=== PATIENT | male | born 1975 | race Caucasian/White ===

== ENCOUNTER 2018-07-28 17:05 | Emergency (ER) | payer OTHER ==
[~2018-07-28] VITALS: Ht 182.9 cm; Wt 102.1 kg
--- NOTE | 2018-07-28 18:10 | NUR ---
CALL TO [facility] [phone], REQUEST PT SCREENING PER DR AVILA. DR AVILA SAW AND EXAMINED PT STATING MEDICAL CLEARANCE PT IS NOT A THREAT TO SELF OR OTHERS. [facility] REPORTS NO JAVASCRIPT APPLICATION DEVELOPER INVOLVEMENT UNLESS ED PHYSICIAN PERFORMS MEDICAL SCREENING LABS. MAY CALL BACK WHEN PERFORMED.
--- NOTE | 2018-07-28 18:22 | ED General ---
General Chief Complaint: Psych/Social Disorder Stated Complaint: MEDICAL CLEARANCE Nursing Triage Note: BROUGHT TO ED VIA [facility] FOR MEDICAL CLEARANCE FOR MENTAL HEALTH EVALUATION THEY REQUESTED. 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 PT PRESENTS RAMBLING CONVERSATION. PT STATES STOPPED ABILIFY A DAY AGO. Nursing Sepsis Screen: No Definite Risk History of Present Illness Date Seen by Provider: Jul 28, 2018 Time Seen by Provider: 18:21 Initial Comments Patient has a 42-year-old male with a history of psychotic symptoms who is brought to the emergency department today after he was found driving 60 miles an hour and running. Signs through the downtown area of force. After it stopped , the police state that the patient made some irrational and abnormal comments about his body so he is brought to the emergency department for evaluation. The patient states he does have a history of some psychotic symptoms and racing thoughts after having a head injury several years earlier. He was previously taking Abilify but stopped taking this medicine yesterday when he ran out. Additionally, he states the medication was not helping his symptoms. He is traveling from [place] and on his way home to [place] but came to first got to say any hotel overnight. During the interview, the patient is not suicidal or homicidal. He complains only of racing thoughts. He does hear voices in his head but they're not giving him specific instructions. Denies illicit drug use or alcohol use today. Allergies and Home Medications Allergies Coded Allergies: No Known Drug Allergies (Unverified , 07/28/18) Home Medications Unable to Obtain Active Prescriptions or Reported Meds Patient Home Medication List Home Medication List Reviewed: Yes Review of Systems Review of Systems Constitutional: no symptoms reported Respiratory: no symptoms reported; No short of breath, No stridor Cardiovascular: No edema, No palpitations, No syncope Gastrointestinal: No diarrhea, No nausea Genitourinary: No hematuria, No pain Psychiatric/Neurological: See HPI; Denies Paresthesia, Denies Seizure, Denies Tingling Hematologic/Lymphatic: See HPI; Denies Anemia, Denies Blood Clots, Denies Other Immunological/Allergic: denies see HPI, denies transplant All Other Systems Reviewed Negative Unless Noted: Yes Past Gxtwddu-Zlkopr-Sygijl Hx Patient Social History Alcohol Use: Occasionally Uses Recreational Drug Use: No (REPORTS HAVING BEEN GIVEN "CRACK" ONE TIME ALONG TIME AGO) Smoking Status: Former Smoker Recent Foreign Travel: No (N) Contact w/Someone Who Travel: No (N) Recent Infectious Disease Expo: No Recent Hopitalizations: No (DENIES, POOR HISTORIAN) Physical Abuse: No Sexual Abuse: No Mistreated: No Fear: No Past Medical History Surgeries: Yes (FX L ARM) Orthopedic, Tonsillectomy Physical Exam Vital Signs Vital Signs - First Documented 07/28/18 17:11 Temp 98.0 Pulse 95 Resp 20 B/P (MAP) 162/122 (135) Pulse Ox 98 O2 Delivery Room Air Capillary Refill : Less Than 3 Seconds Height, Weight, BMI Height: 6'0" Weight: 225lbs. oz. 102.316605vq; BMI Method:Stated General Appearance: No Apparent Distress (NAD) Eyes: Bilateral Eye Normal Inspection, Bilateral Eye PERRL, Bilateral Eye EOMI HEENT: Normal ENT Inspection Neck: Full Range of Motion Respiratory: No Accessory Muscle Use, No Respiratory Distress Cardiovascular: No Edema, Normal Peripheral Pulses Back: Other (normal range of motion) Extremity: Normal Inspection Neurologic/Psychiatric: Alert, Oriented x3, No Motor/Sensory Deficits, Other Skin: Normal Color Progress/Results/Core Measures Suspected Sepsis Recent Fever Within 48 Hours: No Infection Criteria Present: None New/Unexplained Altered Menta: Yes Sepsis Screen: No Definite Risk SIRS Temperature:98.0 Pulse: 95 Respiratory Rate: 20 Laboratory Tests 07/28/18 18:33: White Blood Count 12.1H Blood Pressure 162 /122 Mean: 135 Laboratory Tests 07/28/18 18:33: Creatinine 1.01, INR Comment 1.0, Platelet Count 391 Results/Orders Lab Results Laboratory Tests Test 07/28/18 18:33 07/28/18 19:00 Range/Units White Blood Count 12.1 H 4.3-11.0 10^3/uL Red Blood Count 5.64 4.35-5.85 10^6/uL Hemoglobin 17.2 13.3-17.7 G/DL Hematocrit 50 40-54 % Mean Corpuscular Volume 89 80-99 FL Mean Corpuscular Hemoglobin 30 25-34 PG Mean Corpuscular Hemoglobin Concent 34 32-36 G/DL Red Cell Distribution Width 12.8 10.0-14.5 % Platelet Count 391 130-400 10^3/uL Mean Platelet Volume 8.9 7.4-10.4 FL Neutrophils (%) (Auto) 64 42-75 % Lymphocytes (%) (Auto) 29 12-44 % Monocytes (%) (Auto) 7 0-12 % Eosinophils (%) (Auto) 0 0-10 % Basophils (%) (Auto) 1 0-10 % Neutrophils # (Auto) 7.7 1.8-7.8 X 10^3 Lymphocytes # (Auto) 3.4 1.0-4.0 X 10^3 Monocytes # (Auto) 0.8 0.0-1.0 X 10^3 Eosinophils # (Auto) 0.0 0.0-0.3 10^3/uL Basophils # (Auto) 0.1 0.0-0.1 10^3/uL Prothrombin Time 13.5 12.2-14.7 SEC INR Comment 1.0 0.8-1.4 Activated Partial Thromboplast Time 28 24-35 SEC Sodium Level 141 135-145 MMOL/L Potassium Level 3.6 3.6-5.0 MMOL/L Chloride Level 101 98-107 MMOL/L Carbon Dioxide Level 17 L 21-32 MMOL/L Anion Gap 23 H 5-14 MMOL/L Blood Urea Nitrogen 14 7-18 MG/DL Creatinine 1.01 0.60-1.30 MG/DL Estimat Glomerular Filtration Rate > 60 BUN/Creatinine Ratio 14 Glucose Level 115 H 70-105 MG/DL Calcium Level 9.8 8.5-10.1 MG/DL Salicylates Level < 0.3 L 5.0-20.0 MG/DL Acetaminophen Level < 10 L 10-30 UG/ML Serum Alcohol < 10 <10 MG/DL Urine Color YELLOW Urine Clarity CLEAR Urine pH 6.2 5-9 Urine Specific [place] 1.020 1.016-1.022 Urine Protein NEGATIVE NEGATIVE Urine Glucose (UA) NEGATIVE NEGATIVE Urine Ketones TRACE H NEGATIVE Urine Nitrite NEGATIVE NEGATIVE Urine Bilirubin NEGATIVE NEGATIVE Urine Urobilinogen 0.2 NORMAL MG/DL Urine Leukocyte Esterase NEGATIVE NEGATIVE Urine RBC (Auto) NEGATIVE NEGATIVE Urine RBC NONE /HPF Urine WBC 0-2 /HPF Urine Squamous Epithelial Cells 0-2 /HPF Urine Crystals NONE /LPF Urine Bacteria NEGATIVE /HPF Urine Casts NONE /LPF Urine Mucus SMALL H /LPF Urine Culture Indicated NO Urine Opiates Screen NEGATIVE NEGATIVE Urine Oxycodone Screen NEGATIVE NEGATIVE Urine Methadone Screen NEGATIVE NEGATIVE Urine Propoxyphene Screen NEGATIVE NEGATIVE Urine Barbiturates Screen NEGATIVE NEGATIVE Ur Tricyclic Antidepressants Screen NEGATIVE NEGATIVE Urine Phencyclidine Screen NEGATIVE NEGATIVE Urine Amphetamines Screen NEGATIVE NEGATIVE Urine Methamphetamines Screen NEGATIVE NEGATIVE Urine Benzodiazepines Screen NEGATIVE NEGATIVE Urine Cocaine Screen NEGATIVE NEGATIVE Urine Cannabinoids Screen NEGATIVE NEGATIVE My Orders Orders - ROBERTO CARLOS AVILA DO Cbc With Automated Diff (07/28/18 18:12) Basic Metabolic Panel (07/28/18 18:12) Drug Screen Stat (Urine) (07/28/18 18:12) Urinalysis (07/28/18 18:22) Protime With Inr (07/28/18 18:22) Partial Thromboplastin Time (07/28/18 18:22) Ekg Tracing (07/28/18 18:22) Salicylate (07/28/18 18:22) Acetaminophen (07/28/18 18:22) Alcohol (07/28/18 18:22) Vital Signs/I&O 07/28/18 17:11 Temp 98.0 Pulse 95 Resp 20 B/P (MAP) 162/122 (135) Pulse Ox 98 O2 Delivery Room Air Capillary Refill : Less Than 3 Seconds Blood Pressure Mean: 135 Progress Note : Time: 18:32 Progress Note :Patient is seen and examined. He is calm and cooperative. He is alert and oriented. Not acutely suicidal or homicidal. [facility] senior information security consultant are present. The patient is in police protective custody but is not under arrest. 19:30: All labs are returned and reviewed. There are no acute findings on the patient's lab panel. Paperwork is faxed to the mental health screener. Currently awaiting screening for this patient. The patient continues to be calm and cooperative. Police are still with the patient. He has no acute psychiatric complaints today. 20:10: I did speak with the mental health screener who evaluated the patient's case and his concerns. I advised her that the patient was requesting to be evaluated by a psychiatrist for mental health professional. The patient has not made any emergent statements or complaints that would qualify him for inpatient. Because of this, the screener did not feel that the patient met criteria for acute screening. She recommended a simple safety plan and discharge from the emergency department. I spoke to the health officer with the patient as well as the patient about this plan of care. All parties were agreeable to this plan. Patient is discharged home. He is advised follow-up with his primary psychiatrist when he gets back home to [place]. Return to this ER or go to the nearest emergency department for any new or worsening symptoms. ECG Initial ECG Impression Date: Jul 28, 2018 Initial ECG Impression Time: 18:46 Initial ECG Rate: 66 Initial ECG Intervals: Normal Initial ECG Impression: Normal Departure Impression Primary Impression: Disorganized thought process Disposition: 01 HOME, SELF-CARE Condition: Stable Departure-Patient Inst. Referrals: NO,LOCAL PHYSICIAN (PCP/Family) Primary Care Physician Scripts Unable to Obtain Active Prescriptions or Reported Meds ROBERTO CARLOS AVLIA DO Jul 28, 2018 18:22
--- NOTE | 2018-07-28 18:30 | NUR ---
LAB PRESENT DRAWING PT'S MEDICAL SCREEENING LABS.
[2018-07-28 18:44] LABS: WHITE BLOOD COUNT 12.1 10^3/uL (4.3-11.0)
[2018-07-28 18:45] LABS: EOSINOPHILS % (AUTO) 0 % (0-10); HEMATOCRIT 50 % (40-54); HEMOGLOBIN 17.2 G/DL (13.3-17.7); LYMPHOCYTES % (AUTO) 29 % (12-44); MEAN CORPUSCULAR HEMOGLOBIN 30 PG (25-34); MEAN CORPUSCULAR HGB CONC 34 G/DL (32-36); MEAN CORPUSCULAR VOLUME 89 FL (80-99); MEAN PLATELET VOLUME 8.9 FL (7.4-10.4); MONOCYTES % (AUTO) 7 % (0-12); NEUTROPHILS % (AUTO) 64 % (42-75); PLATELET COUNT 391 10^3/uL (130-400); RED CELL DISTRIBUTION WIDTH 12.8 % (10.0-14.5)
[2018-07-28 18:46] LABS: BASOPHILS # (AUTO) 0.1 10^3/uL (0.0-0.1); BASOPHILS % (AUTO) 1 % (0-10); LYMPHOCYTES # (AUTO) 3.4 X 10^3 (1.0-4.0); MONOCYTES # (AUTO) 0.8 X 10^3 (0.0-1.0); NEUTROPHILS # (AUTO) 7.7 X 10^3 (1.8-7.8)
[2018-07-28 19:06] LABS: PROTHROMBIN TIME PATIENT 13.5 SEC (12.2-14.7)
[2018-07-28 19:11] LABS: BILIRUBIN,URINE NEGATIVE (NEGATIVE); CLARITY,URINE CLEAR; COLOR,URINE YELLOW; GLUCOSE, URINE (UA) NEGATIVE (NEGATIVE); KETONES,URINE TRACE (NEGATIVE); NITRITE,URINE NEGATIVE (NEGATIVE); PH,URINE 6.2 (5-9); PROTEIN,URINE NEGATIVE (NEGATIVE); UROBILINOGEN,URINE 0.2 MG/DL (NORMAL)
[2018-07-28 19:12] LABS: BACTERIA,URINE NEGATIVE /HPF; LEUKOCYTE ESTERASE ,URINE NEGATIVE (NEGATIVE); SQUAMOUS EPITHELIAL CELL,UR 0-2 /HPF; WBC,URINE 0-2 /HPF
[2018-07-28 19:14] LABS: BUN/CREATININE RATIO 14; CALCIUM 9.8 MG/DL (8.5-10.1); CARBON DIOXIDE 17 MMOL/L (21-32); CHLORIDE 101 MMOL/L (98-107); CREATININE SERUM 1.01 MG/DL (0.60-1.30); GFR ESTIMATED > 60; GLUCOSE 115 MG/DL (70-105); POTASSIUM 3.6 MMOL/L (3.6-5.0); SODIUM 141 MMOL/L (135-145)
[2018-07-28 19:15] LABS: ACETAMINOPHEN < 10 UG/ML (10-30); SALICYLATE < 0.3 MG/DL (5.0-20.0)
[2018-07-28 19:19] LABS: AMPHETAMINE SCREEN, URINE NEGATIVE (NEGATIVE); BARBITURATE SCREEN URINE NEGATIVE (NEGATIVE); BENZODIAZEPINES SCREEN URINE NEGATIVE (NEGATIVE); CANNABINOID SCREEN, URINE NEGATIVE (NEGATIVE); COCAINE SCREEN URINE NEGATIVE (NEGATIVE); METHADONE STAT NEGATIVE (NEGATIVE); METHAMPHETAMINE SCREEN URINE S NEGATIVE (NEGATIVE); OPIATE SCREEN URINE NEGATIVE (NEGATIVE); OXYCODONE STAT NEGATIVE (NEGATIVE); PROPOXYPHENE STAT NEGATIVE (NEGATIVE); TRICYCLIC ANTIDEPRESSANTS SCRE NEGATIVE (NEGATIVE)
--- NOTE | 2018-07-28 19:22 | NUR ---
1921- Contacted [facility] to initiate screeing process 1940 - Theresa at [facility] called for more information. Theresa stated that she didn't think that a screeing was indicated at this time. She would call back in 10-15 minutes. 1956 - Theresa called and spoke to Dr. Cortez at this time. She stated that a screening was not indicated at this time. Patient has been medically cleared and screening was determined to not be indicated by [facility].
[2018-07-28 20:15] VITALS: BP 175/85
== END 2018-07-28 20:15 | disposition home or self-care (01) ==
LOC: ER FS 17:07 → EDBD 17:07 → ER FS 20:15
DX: F99 Mental disorder, not otherwise specified (principal); Z87.891 Personal history of nicotine dependence; Z90.89 Acquired absence of other organs; Z98.890 Other specified postprocedural states
CPT/HCPCS: 36415; 80048; 80306; 80320; 80329; 81000; 85025; 85610; 85730

== ENCOUNTER 2018-07-30 10:15 | Emergency (ER) | payer SELFPAY ==
[~2018-07-30] VITALS: Ht 182.9 cm; Wt 102.1 kg
--- NOTE | 2018-07-30 10:33 | ED Psychosocial ---
General Stated Complaint: PSYCH EVAL Source: patient, police, RN/MD (Bedside nurse), RN notes reviewed Exam Limitations: no limitations History of Present Illness Date Seen by Provider: Jul 30, 2018 Time Seen by Provider: 10:18 Timing/Duration: constant (For the past several days), getting worse Severity: moderate Associated Symptoms: anxiety, impaired concentration, insomnia, other ( homicidal ideation) 42-year-old man who was seen on July 28 for medical clearance after disobeying traffic laws. He was not suicidal or homicidal at that time, heard voices but they were random and not giving any sort of specific instructions. He had a normal medical evaluation and was discharged. Today he called 911 to be brought in for mental health evaluation, because "my mind did not feel right". Told PD that he was having hallucinations, hearing voices that told him to kill his mother with a flitch hanger and himself. He reports that he takes Abilify and last took that July 26 or July 27. He' s been traveling from [facility] back to his home in [place]. For the past 2 days he has been in a local hotel he has had intensifying auditory hallucinations, voices telling him to kill people especially his mother with a flitch hanger he is afraid that if he were to harm someone he may also harm himself. He reports he has had prior homicidal ideation when he was a child and in his teens. He denies smoking, illicit drug use or alcohol intake. Reports he's had difficulty sleeping for about 7 days with thoughts racing around in his head and "the part of the brain that tells you right from wrong is suppressed from the forefront of his mind", and that "it sometimes comes to the front of my mind making me concerned about the thoughts and voices that I am having". He feels like he is having shortness of breath that comes from his epigastric region and is causing these thoughts for the past 2-3 days constantly. He feels his body is "undergoing a transformation into the resurrection". Allergies and Home Medications Allergies Coded Allergies: No Known Drug Allergies (Unverified , 07/28/18) Home Medications Unable to Obtain Active Prescriptions or Reported Meds Patient Home Medication List Home Medication List Reviewed: Yes Review of Systems Constitutional: see HPI EENTM: No blurred vision, No double vision Respiratory: No cough, No dyspnea on exertion, No hemoptysis, No orthopnea; short of breath; No wheezing Cardiovascular: No chest pain, No palpitations Gastrointestinal: No abdominal pain, No diarrhea, No nausea, No vomiting Genitourinary: No discharge, No dysuria Musculoskeletal: No back pain, No joint swelling Skin: No dryness, No rash Psychiatric/Neurological: See HPI Past Ctipgxo-Dsfmbn-Yvmxps Hx Past Med/Social Hx: Reviewed Nursing Past Med/Soc Hx Patient Social History Recent Foreign Travel: No Contact w/Someone Who Travel: No Recent Hopitalizations: No (DENIES, POOR HISTORIAN) Past Medical History Surgeries: Yes (FX L ARM) Orthopedic, Tonsillectomy Physical Exam Vital Signs - First Documented 07/30/18 10:18 Temp 97.8 Pulse 83 Resp 20 B/P (MAP) 154/99 (117) Pulse Ox 100 O2 Delivery Room Air Capillary Refill : Height, Weight, BMI Height: 6'0" Weight: 225lbs. oz. 102.014489ym; BMI Method:Stated General Appearance: WD/WN, no apparent distress, other (Sweaty, anxious) HEENT: PERRL/EOMI, normal ENT inspection, pharynx normal Neck: full range of motion, supple Respiratory: chest non-tender, lungs clear, normal breath sounds, no respiratory distress, no accessory muscle use Cardiovascular: regular rate, rhythm, no edema, no gallop, no JVD, no murmur Gastrointestinal: normal bowel sounds, non tender, soft, no organomegaly, no pulsatile mass Extremities: normal range of motion, normal inspection Neurologic/Psychiatric: quality assurance supervisor II-XII nml as tested, no motor/sensory deficits, alert, other (pressured speech, flight of ideas, homicidal, auditory hallucinations) Thoughts/Hallucinations: auditory hallucinations, delusions, flight of ideas, grandiose, obsessive, paranoid, phobic (Afraid of persecution or imprisonment), denominational Progress/Results/Core Measures Results/Orders Lab Results Laboratory Tests Test 07/30/18 11:03 07/30/18 11:25 Range/Units White Blood Count 9.7 4.3-11.0 10^3/uL Red Blood Count 5.20 4.35-5.85 10^6/uL Hemoglobin 15.8 13.3-17.7 G/DL Hematocrit 47 40-54 % Mean Corpuscular Volume 90 80-99 FL Mean Corpuscular Hemoglobin 30 25-34 PG Mean Corpuscular Hemoglobin Concent 34 32-36 G/DL Red Cell Distribution Width 12.8 10.0-14.5 % Platelet Count 340 130-400 10^3/uL Mean Platelet Volume 8.9 7.4-10.4 FL Neutrophils (%) (Auto) 65 42-75 % Lymphocytes (%) (Auto) 28 12-44 % Monocytes (%) (Auto) 6 0-12 % Eosinophils (%) (Auto) 1 0-10 % Basophils (%) (Auto) 1 0-10 % Neutrophils # (Auto) 6.3 1.8-7.8 X 10^3 Lymphocytes # (Auto) 2.7 1.0-4.0 X 10^3 Monocytes # (Auto) 0.6 0.0-1.0 X 10^3 Eosinophils # (Auto) 0.1 0.0-0.3 10^3/uL Basophils # (Auto) 0.1 0.0-0.1 10^3/uL Sodium Level 141 135-145 MMOL/L Potassium Level 3.9 3.6-5.0 MMOL/L Chloride Level 104 98-107 MMOL/L Carbon Dioxide Level 16 L 21-32 MMOL/L Anion Gap 21 H 5-14 MMOL/L Blood Urea Nitrogen 13 7-18 MG/DL Creatinine 1.02 0.60-1.30 MG/DL Estimat Glomerular Filtration Rate > 60 BUN/Creatinine Ratio 13 Glucose Level 113 H 70-105 MG/DL Calcium Level 9.8 8.5-10.1 MG/DL Corrected Calcium 8.5-10.1 MG/DL Total Bilirubin 0.4 0.1-1.0 MG/DL Aspartate Amino Transf (AST/SGOT) 19 5-34 U/L Alanine Aminotransferase (ALT/SGPT) 39 0-55 U/L Alkaline Phosphatase 80 40-136 U/L Total Protein 7.9 6.4-8.2 GM/DL Albumin 4.8 H 3.2-4.5 GM/DL Salicylates Level < 3.0 L 5.0-20.0 MG/DL Acetaminophen Level < 10 L 10-30 UG/ML Serum Alcohol < 10 <10 MG/DL Urine Color YELLOW Urine Clarity CLEAR Urine pH 6.0 5-9 Urine Specific [place] 1.025 H 1.016-1.022 Urine Protein NEGATIVE NEGATIVE Urine Glucose (UA) NEGATIVE NEGATIVE Urine Ketones NEGATIVE NEGATIVE Urine Nitrite NEGATIVE NEGATIVE Urine Bilirubin NEGATIVE NEGATIVE Urine Urobilinogen 0.2 NORMAL MG/DL Urine Leukocyte Esterase NEGATIVE NEGATIVE Urine RBC (Auto) NEGATIVE NEGATIVE Urine RBC RARE /HPF Urine WBC 0-2 /HPF Urine Squamous Epithelial Cells 2-5 /HPF Urine Crystals NONE /LPF Urine Bacteria NONE /HPF Urine Casts NONE /LPF Urine Mucus NEGATIVE /LPF Urine Culture Indicated NO Urine Opiates Screen NEGATIVE NEGATIVE Urine Oxycodone Screen NEGATIVE NEGATIVE Urine Methadone Screen NEGATIVE NEGATIVE Urine Propoxyphene Screen NEGATIVE NEGATIVE Urine Barbiturates Screen NEGATIVE NEGATIVE Ur Tricyclic Antidepressants Screen NEGATIVE NEGATIVE Urine Phencyclidine Screen NEGATIVE NEGATIVE Urine Amphetamines Screen NEGATIVE NEGATIVE Urine Methamphetamines Screen NEGATIVE NEGATIVE Urine Benzodiazepines Screen NEGATIVE NEGATIVE Urine Cocaine Screen NEGATIVE NEGATIVE Urine Cannabinoids Screen NEGATIVE NEGATIVE My Orders Orders - GONZALO ASH MD Ua Culture If Indicated (07/30/18 10:52) Cbc With Automated Diff (07/30/18 10:52) Comprehensive Metabolic Panel (07/30/18 10:52) Alcohol (07/30/18 10:52) Drug Screen Stat (Urine) (07/30/18 10:52) Acetaminophen (07/30/18 10:52) Salicylate (07/30/18 10:52) Ekg Tracing (07/30/18 10:52) Saline Lock/Iv-Start (07/30/18 10:52) Monitor-Rhythm Ecg Trace Only (07/30/18 10:52) Bh Status Checks/Observation Q15M (07/30/18 10:52) Chest 1 View Ap/Pa Only (07/30/18 10:52) Vital Signs/I&O 07/30/18 07/30/18 10:18 15:35 Temp 97.8 97.8 Pulse 83 80 Resp 20 20 B/P (MAP) 154/99 (117) 148/92 (110) Pulse Ox 100 100 O2 Delivery Room Air Progress Progress Note : Time: 12:10 Progress Note RN discussed case with MANDA screener who will evaluate in the ED. Initial ECG Impression Date: Jul 30, 2018 Initial ECG Impression Time: 11:00 Initial ECG Rate: 65 Initial ECG Rhythm: Normal Sinus Initial ECG Intervals Normal CT, QRS, QTC intervals, normal axis, no hypertrophy, no STEMI Initial ECG Impression: Normal Diagnostic Imaging Diagonstic Imaging: Xray Plain Films/CT/US/NM/MRI: chest Comments No acute process Reviewed: Reviewed by Me Consults : Consults Notes screener: 1500: patient does not need inpatient services. Will arrange outpatient follow up tomorrow. Departure Impression Primary Impression: Disorganized thought process Disposition: HOME, SELF-CARE Condition: Stable Departure-Patient Inst. Decision time for Depature: 15:12 Referrals: NO,LOCAL PHYSICIAN (PCP/Family) Primary Care Physician Add. Discharge Instructions: Follow up with [facility] as scheduled tomorrow. Scripts Unable to Obtain Active Prescriptions or Reported Meds GONZALO ASH MD Jul 30, 2018 10:33
[2018-07-30 11:15] LABS: BASOPHILS % (AUTO) 1 % (0-10); EOSINOPHILS % (AUTO) 1 % (0-10); HEMATOCRIT 47 % (40-54); HEMOGLOBIN 15.8 G/DL (13.3-17.7); LYMPHOCYTES % (AUTO) 28 % (12-44); MEAN CORPUSCULAR HEMOGLOBIN 30 PG (25-34); MEAN CORPUSCULAR HGB CONC 34 G/DL (32-36); MEAN CORPUSCULAR VOLUME 90 FL (80-99); MEAN PLATELET VOLUME 8.9 FL (7.4-10.4); MONOCYTES % (AUTO) 6 % (0-12); NEUTROPHILS % (AUTO) 65 % (42-75); PLATELET COUNT 340 10^3/uL (130-400); RED CELL DISTRIBUTION WIDTH 12.8 % (10.0-14.5); WHITE BLOOD COUNT 9.7 10^3/uL (4.3-11.0)
[2018-07-30 11:16] LABS: BASOPHILS # (AUTO) 0.1 10^3/uL (0.0-0.1); EOSINOPHILS # (AUTO) 0.1 10^3/uL (0.0-0.3); LYMPHOCYTES # (AUTO) 2.7 X 10^3 (1.0-4.0); MONOCYTES # (AUTO) 0.6 X 10^3 (0.0-1.0); NEUTROPHILS # (AUTO) 6.3 X 10^3 (1.8-7.8)
[2018-07-30 11:37] LABS: ALANINE AMINOTRANSFERASE 39 U/L (0-55); ALKALINE PHOSPHATASE 80 U/L (40-136); BILIRUBIN,TOTAL 0.4 MG/DL (0.1-1.0); BUN/CREATININE RATIO 13; CALCIUM 9.8 MG/DL (8.5-10.1); CARBON DIOXIDE 16 MMOL/L (21-32); CHLORIDE 104 MMOL/L (98-107); CREATININE SERUM 1.02 MG/DL (0.60-1.30); GFR ESTIMATED > 60; GLUCOSE 113 MG/DL (70-105); POTASSIUM 3.9 MMOL/L (3.6-5.0); SODIUM 141 MMOL/L (135-145)
[2018-07-30 11:38] LABS: CLARITY,URINE CLEAR; COLOR,URINE YELLOW
[2018-07-30 11:38] LABS: ACETAMINOPHEN < 10 UG/ML (10-30); ALBUMIN 4.8 GM/DL (3.2-4.5); SALICYLATE < 3.0 MG/DL (5.0-20.0); TOTAL PROTEIN 7.9 GM/DL (6.4-8.2)
[2018-07-30 11:39] LABS: BILIRUBIN,URINE NEGATIVE (NEGATIVE); GLUCOSE, URINE (UA) NEGATIVE (NEGATIVE); KETONES,URINE NEGATIVE (NEGATIVE); LEUKOCYTE ESTERASE ,URINE NEGATIVE (NEGATIVE); NITRITE,URINE NEGATIVE (NEGATIVE); PROTEIN,URINE NEGATIVE (NEGATIVE); RBC,URINE RARE /HPF; UROBILINOGEN,URINE 0.2 MG/DL (NORMAL); WBC,URINE 0-2 /HPF
[2018-07-30 11:43] LABS: AMPHETAMINE SCREEN, URINE NEGATIVE (NEGATIVE); BARBITURATE SCREEN URINE NEGATIVE (NEGATIVE); BENZODIAZEPINES SCREEN URINE NEGATIVE (NEGATIVE); CANNABINOID SCREEN, URINE NEGATIVE (NEGATIVE); COCAINE SCREEN URINE NEGATIVE (NEGATIVE); METHADONE STAT NEGATIVE (NEGATIVE); METHAMPHETAMINE SCREEN URINE S NEGATIVE (NEGATIVE); OPIATE SCREEN URINE NEGATIVE (NEGATIVE); OXYCODONE STAT NEGATIVE (NEGATIVE); PROPOXYPHENE STAT NEGATIVE (NEGATIVE); TRICYCLIC ANTIDEPRESSANTS SCRE NEGATIVE (NEGATIVE)
--- NOTE | 2018-07-30 11:49 | Diagnostic Imaging Report ---
INDICATION: Psychiatric evaluation. TECHNIQUE: Single view chest 10:58 AM. CORRELATION STUDY: None FINDINGS: The heart size, mediastinal configuration and pulmonary vascularity are within normal limits. The lungs are clear with no consolidating infiltrate. There is no significant effusion or pneumothorax. IMPRESSION: 1. No radiographic findings to suggest acute abnormality of the chest. Dictated by: Dictated on workstation # [id number]
--- NOTE | 2018-07-30 12:00 | NUR ---
Call to [facility] to request a screening as pt is medically cleared by Dr Mancia. All appropriate medical screening tests are completed.
--- NOTE | 2018-07-30 12:06 | NUR ---
Return call from [facility] "Gigi" and discussed medical clearance and need for screener visit.
--- NOTE | 2018-07-30 13:46 | NUR ---
Call back to [facility] for ETA on Gigi. Verified he is arriving in town currently for screening.
--- NOTE | 2018-07-30 13:55 | NUR ---
Gigi with [facility] here to screen pt. Pt staying in room and cooperative with him.
--- NOTE | 2018-07-30 14:30 | NUR ---
Continued screening process. Pt is in line of site but screener remains with patient. No threat to self or others in ED. Pt is nervous or paranoid as movement frequently.
[2018-07-30 15:35] VITALS: BP 148/92
--- NOTE | 2018-07-30 15:35 | NUR ---
Pt discharged at this time and offered ride with screener to his [facility]. Pt has been given follow appointments tomorrow and medications will be prescribed. Pt is residing at [facility] currently. Pt verbalizes understanding of instructions. Pt has emergency contact numbers to call.
== END 2018-07-30 15:35 | disposition home or self-care (01) ==
LOC: EDUNIT# 10:15 → ER FS 10:17
DX: F98.8 Other specified behavioral and emotional disorders with onset usually occurring in childhood and adolescence (principal); F41.9 Anxiety disorder, unspecified; G47.00 Insomnia, unspecified; Z90.89 Acquired absence of other organs
CPT/HCPCS: 36415; 71045; 80053; 80306; 80320; 80329; 81000; 85025

== ENCOUNTER 2018-08-02 14:51 | Emergency (ER) | payer OTHER ==
[~2018-08-02] VITALS: Ht 182.9 cm; Wt 104.3 kg
[2018-08-02 15:47] LABS: BASOPHILS % (AUTO) 1 % (0-10); EOSINOPHILS % (AUTO) 1 % (0-10); HEMATOCRIT 46 % (40-54); LYMPHOCYTES % (AUTO) 45 % (12-44); MEAN CORPUSCULAR HEMOGLOBIN 31 PG (25-34); MEAN CORPUSCULAR HGB CONC 35 G/DL (32-36); MEAN CORPUSCULAR VOLUME 89 FL (80-99); MEAN PLATELET VOLUME 9.1 FL (7.4-10.4); MONOCYTES % (AUTO) 7 % (0-12); NEUTROPHILS % (AUTO) 46 % (42-75); PLATELET COUNT 331 10^3/uL (130-400); RED CELL DISTRIBUTION WIDTH 12.4 % (10.0-14.5); WHITE BLOOD COUNT 9.9 10^3/uL (4.3-11.0)
[2018-08-02 15:48] LABS: BASOPHILS # (AUTO) 0.1 10^3/uL (0.0-0.1); EOSINOPHILS # (AUTO) 0.1 10^3/uL (0.0-0.3); LYMPHOCYTES # (AUTO) 4.5 X 10^3 (1.0-4.0); MONOCYTES # (AUTO) 0.7 X 10^3 (0.0-1.0); NEUTROPHILS # (AUTO) 4.5 X 10^3 (1.8-7.8)
[2018-08-02 15:54] LABS: AMPHETAMINE SCREEN, URINE NEGATIVE (NEGATIVE); BARBITURATE SCREEN URINE NEGATIVE (NEGATIVE); BENZODIAZEPINES SCREEN URINE NEGATIVE (NEGATIVE); CANNABINOID SCREEN, URINE NEGATIVE (NEGATIVE); COCAINE SCREEN URINE NEGATIVE (NEGATIVE); METHADONE STAT NEGATIVE (NEGATIVE); METHAMPHETAMINE SCREEN URINE S NEGATIVE (NEGATIVE); OPIATE SCREEN URINE NEGATIVE (NEGATIVE); OXYCODONE STAT NEGATIVE (NEGATIVE); PROPOXYPHENE STAT NEGATIVE (NEGATIVE); TRICYCLIC ANTIDEPRESSANTS SCRE NEGATIVE (NEGATIVE)
[2018-08-02 16:11] LABS: SODIUM 138 MMOL/L (135-145)
[2018-08-02 16:12] LABS: ALANINE AMINOTRANSFERASE 39 U/L (0-55); ALBUMIN 4.7 GM/DL (3.2-4.5); ALKALINE PHOSPHATASE 72 U/L (40-136); BILIRUBIN,TOTAL 0.4 MG/DL (0.1-1.0); BUN/CREATININE RATIO 9; CALCIUM 9.5 MG/DL (8.5-10.1); CARBON DIOXIDE 18 MMOL/L (21-32); CHLORIDE 100 MMOL/L (98-107); CREATININE SERUM 1.02 MG/DL (0.60-1.30); GFR ESTIMATED > 60; GLUCOSE 95 MG/DL (70-105); POTASSIUM 3.8 MMOL/L (3.6-5.0); TOTAL PROTEIN 7.6 GM/DL (6.4-8.2)
--- NOTE | 2018-08-02 16:21 | ED General ---
General Chief Complaint: Altered Mental Status Stated Complaint: ALTERED MENTAL STATE Nursing Triage Note: Pt sent to ED by Mark Lewis from the [facility]. Mark reports pt is voluntary and would like pt to come to ED for medical clearance for placement. Mark reports pt has stated, "I am feeling like a danger. I am two inches from the line of hurting myself or others." Mark reports pt is having visions in head and paranoid delusions. Pt believes pt is an avatar. Mark reports pt has stated if pt doesn't get immediate help pt is going to buy sleeping pills so pt can stay asleep. Pt c/o panic attacks, severe depression, and schizophrenia. Pt denies getting meds filled from last visit at ED, but found meds in car. Pt reports not feeling in control of thoughts or emotions. Pt also reports missing last mental health appt. Pt denies suicidal ideation, but would like to, "buy sleeping pills so I can sleep all day and reset self." Pt does report concern of harming others. Pt states, "I might harm someone else if I freak out too much. I am having visions of hurting other people." Nursing Sepsis Screen: No Definite Risk Source of Information: Patient History of Present Illness Date Seen by Provider: Aug 02, 2018 Time Seen by Provider: 15:00 Initial Comments Patient is a 42-year-old transient male currently residing at a local hotel who presents with thoughts of harming himself and others. Patient denies active suicidal ideation or plan at states he has had thoughts past. He states he also has had thoughts about harming others. He does not have target. Denies auditory hallucinations or command hallucinations. Denies drug alcohol and other substance abuse. Patient was evaluated in this emergency department last week for the same is referred to outpatient mental health services. I refilled his prescriptions or follow-up with outpatient appointment until today and was brought to the emergency department by mental health counselor. Patient denies any chronic medical illness. Denies recent sickness injury or trauma. Patient has no [facility] up and [facility]. He states he was on his way to [place] until he was directed to come to [place] by evelyn. Timing/Duration: Other Severity: Moderate Associated Systoms: Denies Symptoms Allergies and Home Medications Allergies Coded Allergies: No Known Drug Allergies (Unverified , 07/28/18) Home Medications Unable to Obtain Active Prescriptions or Reported Meds Patient Home Medication List Home Medication List Reviewed: Yes Review of Systems Review of Systems Constitutional: no symptoms reported EENTM: no symptoms reported Respiratory: no symptoms reported Cardiovascular: no symptoms reported Gastrointestinal: no symptoms reported Genitourinary: no symptoms reported Musculoskeletal: no symptoms reported Skin: no symptoms reported Psychiatric/Neurological: No Symptoms Reported, Anxiety, Depressed; Denies Headache, Denies Numbness, Denies Paresthesia, Denies Pre-Existing Deficit, Denies Seizure, Denies Tingling, Denies Tremors, Denies Weakness Past [id number]-[id number]-Phdgoj Hx Patient Social History Alcohol Use: Denies Use Recreational Drug Use: No Recent Foreign Travel: No Contact w/Someone Who Travel: No Recent Infectious Disease Expo: No Recent Hopitalizations: No (DENIES, POOR HISTORIAN) Physical Abuse: No Sexual Abuse: No Mistreated: No Fear: No Seasonal Allergies Seasonal Allergies: No Past Medical History Surgeries: Yes (FX L ARM) Orthopedic, Tonsillectomy Psychosocial: Yes (POOR HISTORIAN, Panic attacks) Depression Nursing Suicide Risk Notes: Pt denies suicidal ideation. Pt reports only wanting to "buy sleeping pills so I can sleep all day and reset self." Physical Exam Vital Signs Vital Signs - First Documented 08/02/18 14:51 Temp 99.0 Pulse 100 Resp 21 B/P (MAP) 153/93 (113) Pulse Ox 99 O2 Delivery Room Air Capillary Refill : Less Than 3 Seconds Height, Weight, BMI Height: 6'0" Weight: 230lbs. oz. [id number]; BMI Method:Stated General Appearance: Anxious Eyes: Bilateral Eye Normal Inspection, Bilateral Eye PERRL, Bilateral Eye EOMI HEENT: PERRL/EOMI Neck: Full Range of Motion, Normal Inspection Respiratory: Lungs Clear, Normal Breath Sounds Cardiovascular: Regular Rate, Rhythm Gastrointestinal: Normal Bowel Sounds Neurologic/Psychiatric: Alert, Oriented x3; No Abnormal heart coordinator II-XII, No Abnormal Gait; Other (delusional thoughts, grandiosity, no SI or HI.) Skin: Cool Progress/Results/Core Measures Suspected Sepsis Recent Fever Within 48 Hours: No Infection Criteria Present: None New/Unexplained Altered Menta: No Sepsis Screen: No Definite Risk SIRS Temperature:99.0 Pulse: 100 Respiratory Rate: 21 Laboratory Tests 08/02/18 15:20: White Blood Count 9.9 Blood Pressure 153 /93 Mean: 113 Laboratory Tests 08/02/18 15:20: Creatinine 1.02, Platelet Count 331, Total Bilirubin 0.4 Results/Orders Lab Results Laboratory Tests Test 08/02/18 15:20 Range/Units White Blood Count 9.9 4.3-11.0 10^3/uL Red Blood Count 5.21 4.35-5.85 10^6/uL Hemoglobin 16.0 13.3-17.7 G/DL Hematocrit 46 40-54 % Mean Corpuscular Volume 89 80-99 FL Mean Corpuscular Hemoglobin 31 25-34 PG Mean Corpuscular Hemoglobin Concent 35 32-36 G/DL Red Cell Distribution Width 12.4 10.0-14.5 % Platelet Count 331 130-400 10^3/uL Mean Platelet Volume 9.1 7.4-10.4 FL Neutrophils (%) (Auto) 46 42-75 % Lymphocytes (%) (Auto) 45 H 12-44 % Monocytes (%) (Auto) 7 0-12 % Eosinophils (%) (Auto) 1 0-10 % Basophils (%) (Auto) 1 0-10 % Neutrophils # (Auto) 4.5 1.8-7.8 X 10^3 Lymphocytes # (Auto) 4.5 H 1.0-4.0 X 10^3 Monocytes # (Auto) 0.7 0.0-1.0 X 10^3 Eosinophils # (Auto) 0.1 0.0-0.3 10^3/uL Basophils # (Auto) 0.1 0.0-0.1 10^3/uL Sodium Level 138 135-145 MMOL/L Potassium Level 3.8 3.6-5.0 MMOL/L Chloride Level 100 98-107 MMOL/L Carbon Dioxide Level 18 L 21-32 MMOL/L Anion Gap 20 H 5-14 MMOL/L Blood Urea Nitrogen 9 7-18 MG/DL Creatinine 1.02 0.60-1.30 MG/DL Estimat Glomerular Filtration Rate > 60 BUN/Creatinine Ratio 9 Glucose Level 95 70-105 MG/DL Calcium Level 9.5 8.5-10.1 MG/DL Corrected Calcium 8.5-10.1 MG/DL Total Bilirubin 0.4 0.1-1.0 MG/DL Aspartate Amino Transf (AST/SGOT) 21 5-34 U/L Alanine Aminotransferase (ALT/SGPT) 39 0-55 U/L Alkaline Phosphatase 72 40-136 U/L Total Protein 7.6 6.4-8.2 GM/DL Albumin 4.7 H 3.2-4.5 GM/DL Urine Opiates Screen NEGATIVE NEGATIVE Urine Oxycodone Screen NEGATIVE NEGATIVE Urine Methadone Screen NEGATIVE NEGATIVE Urine Propoxyphene Screen NEGATIVE NEGATIVE Urine Barbiturates Screen NEGATIVE NEGATIVE Ur Tricyclic Antidepressants Screen NEGATIVE NEGATIVE Urine Phencyclidine Screen NEGATIVE NEGATIVE Urine Amphetamines Screen NEGATIVE NEGATIVE Urine Methamphetamines Screen NEGATIVE NEGATIVE Urine Benzodiazepines Screen NEGATIVE NEGATIVE Urine Cocaine Screen NEGATIVE NEGATIVE Urine Cannabinoids Screen NEGATIVE NEGATIVE Serum Alcohol < 10 <10 MG/DL My Orders Orders - SAUNDRA BROWN DO Cbc With Automated Diff (08/02/18 14:58) Comprehensive Metabolic Panel (08/02/18 14:58) Drug Screen Stat (Urine) (08/02/18 14:58) Ekg Tracing (08/02/18 14:58) Alcohol (08/02/18 14:58) Vital Signs/I&O 08/02/18 14:51 Temp 99.0 Pulse 100 Resp 21 B/P (MAP) 153/93 (113) Pulse Ox 99 O2 Delivery Room Air Capillary Refill : Less Than 3 Seconds Blood Pressure Mean: 113 ECG Initial ECG Rhythm: Normal Sinus Departure Impression Primary Impression: Disorganized thought process Disposition: 01 HOME, SELF-CARE Condition: Improved Departure-Patient Inst. Referrals: NO,LOCAL PHYSICIAN (PCP) Primary Care Physician Patient Instructions: ALCOHOL AND SUBSTANCE ABUSE Scripts Unable to Obtain Active Prescriptions or Reported Meds SAUNDRA BROWN DO Aug 02, 2018 16:21
--- NOTE | 2018-08-02 18:32 | NUR ---
Pt medically cleared and information faxed to [facility] Per Mark Lewis. Awaiting to hear if [facility] will take pt. Per Dr. Shabazz, if [facility] does not have room for pt, pt is to be discharged [facility].
--- NOTE | 2018-08-02 18:56 | NUR ---
report given to nilay polo
[2018-08-02 21:35] VITALS: BP 153/93
== END 2018-08-02 21:35 | disposition home or self-care (01) ==
LOC: EDUNIT# 14:51 → ER FS 14:52
DX: F98.9 Unspecified behavioral and emotional disorders with onset usually occurring in childhood and adolescence (principal); F32.9 Major depressive disorder, single episode, unspecified; F41.0 Panic disorder [episodic paroxysmal anxiety]; Z90.89 Acquired absence of other organs
CPT/HCPCS: 36415; 80053; 80306; 80320; 85025